=== PATIENT | female | born 1980 | race Caucasian/White ===

== ENCOUNTER 2017-10-26 22:32 | Emergency (ER) | payer MEDICAID ==
--- NOTE | 2017-10-26 23:00 | Emergency Department Record ---
History of Present Illness - General Chief complaint: Dental Stated complaint: DENTAL PAIN Time Seen by Provider: 10/26/17 22:51 Mode of Arrival: Ambulatory - History of Present Illness Initial comments: The patient states that she is having continued left lower molar tooth pain for which she has an extraction appointment with the oral surgeon on . She is on her second course of clindamycin antibiotics. She wishes something more for the pain which seems to bother her more at night. Onset/Timin -: Days(s) Location: L ear, Tooth # Severity scale (1-10): 10 Quality: Aching Consistency: Constant Improves with: Other Worsens with: Eating, Position, Other Context- Dental: History of dental caries - Related Data Allergies Allergy/AdvReac Type Severity Reaction Status Date / Time Egg Derived Allergy Intermediate FATIGUE Verified 10/26/17 22:42 influenza virus vaccine, Allergy Intermediate FATIGUE Verified 10/26/17 22:42 specific sertraline HCl [From Zoloft] AdvReac Severe suicidal Verified 10/26/17 22:42 tendencies Travel Screening - Travel/Exposure Within Last 30 Days Have you traveled within the last 30 days?: No - Travel/Exposure Within Last Year Have you traveled outside the [place] in the last year?: No - Additonal Travel Details Have you been exposed to anyone with a communicable illness?: No - Travel Symptoms Symptom Screening: None Review of Systems Reviewed: No additional complaints except as noted below Constitutional: Reports: As per HPI. Denies: Chills, Fever, Malaise, Night sweats, Weakness, Weight change Eyes: Reports: As per HPI. Denies: Eye discharge, Eye pain, Photophobia, Vision change ENT: Reports: As per HPI. Denies: Congestion, Dental pain, Ear pain, Epistaxis , Hearing loss, Throat pain Respiratory: Reports: As per HPI. Denies: Cough, Dyspnea, Hemoptysis, Stridor, Wheezes Cardiovascular: Reports: As per HPI. Denies: Arrhythmia, Chest pain, Dyspnea on exertion, Edema, Murmurs, Orthopnea, Palpitations, Paroxysmal nocturnal dyspnea, Rheumatic Fever, Syncope Endocrine: Reports: As per HPI. Denies: Fatigue, Heat or cold intolerance, Polydipsia, Polyuria Gastrointestinal: Reports: As per HPI. Denies: Abdominal pain, Constipation, Diarrhea, Hematemesis, Hematochezia, Melena, Nausea, Vomiting Genitourinary: Reports: As per HPI. Denies: Abnormal menses, Discharge, Dyspareunia, Dysuria, Frequency, Hematuria, Incontinence, Retention, Urgency Musculoskeletal: Reports: As per HPI. Denies: Arthralgia, Back pain, Gout, Joint swelling, Myalgia, Neck pain Skin: Reports: As per HPI. Denies: Bruising, Change in color, Change in hair/ nails, Lesions, Pruritus, Rash Neurological: Reports: As per HPI. Denies: Abnormal gait, Confusion, Headache, Numbness, Paresthesias, Seizure, Tingling, Tremors, Vertigo, Weakness Psychiatric: Reports: As per HPI. Denies: Anxiety, Auditory hallucinations, Depression, Homicidal thoughts, Suicidal thoughts, Visual hallucinations Hematological/Lymphatic: Reports: As per HPI. Denies: Anemia, Blood Clots, Easy bleeding, Easy bruising, Swollen glands Past Medical History - SOCIAL HISTORY Smoking Status: Never smoker Alcohol Use: None Drug Use: None - RESPIRATORY Hx Respiratory Disorders: Yes Hx Asthma: Yes - CARDIOVASCULAR Hx Cardio Disorders: Yes Hx Hypertension: Yes Hx Irregular Heartbeat: Yes Hx Palpitations: Yes (comes & goes) Comment:: fast HR, stress test & holter monitor neg 2015 - NEURO Hx Neuro Disorders: Yes Hx Dizziness: Yes - GI Hx GI Disorders: Yes Hx Abdominal Pain: Yes (upper, mid line) Hx Reflux: Yes Hx Rectal Bleeding: Yes (had for years) Hx of Polyps: Yes - Hx Genitourinary Disorders: No - ENDOCRINE Hx Endocrine Disorders: No - MUSCULOSKELETAL Hx Musculoskeletal Disorders: Yes Hx Arthritis: Yes (bilateral knees) - PSYCH Hx Psych Problems: Yes Hx Anxiety: Yes Hx Depression: Yes - HEMATOLOGY/ONCOLOGY Hx Hematology/Oncology Disorders: No Family Medical History Any Significant Family History?: No Hx Cancer: Grandparents *Cancer Comment: colon ca in both fraternal grandparents Hx Resp Disorders: Children, Grandparents Physical Exam - General General Appearance: Alert, Oriented x3, Cooperative, Mild distress - Head Head exam: Normal inspection - Eye Eye exam: Normal appearance, PERRL Pupils: Normal accommodation - ENT ENT exam: Normal exam, Mucous membranes moist, Normal external ear exam, Normal orophraynx, TM's normal bilaterally Ear exam: Normal external inspection. negative: External canal tenderness Nasal Exam: Normal inspection. negative: Discharge, Sinus tenderness Mouth exam: Normal external inspection, Tongue normal Teeth exam: Normal inspection, Fractured tooth # (#19), Other (no facial swelling, no lymphadenopathy beneath jaw). negative: Dental caries Throat exam: Normal inspection. negative: Tonsillar erythema, Tonsillar exudate - Neck Neck exam: Normal inspection, Full ROM. negative: Tenderness - Respiratory Respiratory exam: Normal lung sounds bilaterally. negative: Respiratory distress - Cardiovascular Cardiovascular Exam: Regular rate, Normal rhythm, Normal heart sounds - GI/Abdominal GI/Abdominal exam: Soft, Normal bowel sounds. negative: Tenderness - Rectal Rectal exam: Deferred - exam: Deferred - Extremities Extremities exam: Normal inspection, Full ROM, Normal capillary refill. negative: Tenderness - Back Back exam: Reports: Normal inspection, Full ROM. Denies: Muscle spasm, Rash noted, Tenderness - Neurological Neurological exam: Alert, CN II-XII intact, Normal gait, Oriented X3, Reflexes normal - Psychiatric Psychiatric exam: Normal affect, Normal mood - Skin Skin exam: Dry, Intact, Normal color, Warm Course Vital Signs 10/26/17 22:43 Temperature 97.7 F Pulse Rate 72 Respiratory 20 Rate Blood Pressure 140/96 Pulse Ox 99 Medical Decision Making - Management Options MDM Management: No Additional Work-up Planned Disposition Disposition: Discharge Clinical Impression: Pain, dental Disposition: Home, Self-Care Condition: (1) Good Additional Instructions: "Temporary Filling" at [facility] apply as instructed. Benadryl liquid--set it in the tooth for numbing locally. Take benadryl 50 mg at night to help with sleep as it causes drowsiness. Continue present medications of clindamycin as instructed. Alternate tylenol with ibuprofen as directed as needed for pain. Keep oral surgeon appointment as previouslyl arranged. Quality - Quality Measures Quality Measures: N/A - Blood Pressure Screening Does Patient Have Any of the Following: No Blood Pressure Classification: Hypertensive Reading Systolic Measurement: 140 Diastolic Measurement: 96 Screening for High Blood Pressure: Patient Exclusion, Hx of HTN [G9744]
[2017-10-26] MEDS ORDERED: DIPHENHYDRAMINE HCL 50 MG/ML VIAL IM ONE (23:02)
== END 2017-10-26 23:19 | disposition home or self-care (01) ==
LOC: ER 22:32
DX: S02.5XXA Fracture of tooth (traumatic), initial encounter for closed fracture (principal); X58.XXXA Exposure to other specified factors, initial encounter
CPT/HCPCS: 96372; 99282; 99283; J1200

== ENCOUNTER 2018-04-18 00:02 | Emergency (ER) | payer MEDICAID ==
--- NOTE | 2018-04-18 00:25 | Emergency Department Record ---
History of Present Illness - General Chief Complaint: Syncope Stated Complaint: SYNCOPAL Time Seen by Provider: 04/18/18 00:11 Source: Patient Mode of Arrival: EMS Limitations: No limitations Travel/Exposure to [facility] Within 21 Days of Symptoms: No - History of Present Illness Initial Comments: The patient is here due to almost passing out on the toilet a half hour ago. She has recently been constipated and was bearing down to have a BM and did have a small BM. She then soon felt weak and lightheaded and almost passed out. The patient denied any Cp or SOB during the episode but did have some sweating. She has had a hx of palpitations and did have a neg EST in 2014. She denies any recent illnesses or injuries and has had no CP with exertion, OROPEZA or lightheadedness prior to this event. MD Complaint: Glidden faint Onset/Timin -: Minutes(s) Prodromal Symptoms: Diaphoresis Injuries Sustained Associated with Event: None Current Symptoms: Abdominal pain Treatments Prior to Arrival: None Treatment Prior to Arrival Comment:: Blood sugar 122 - Cass Coma Scale Eye Response: (4) Open spontaneously Motor Response: (6) Obeys commands Verbal Response: (5) Oriented Bennett Total: 15 - Related Data Allergies Allergy/AdvReac Type Severity Reaction Status Date / Time Egg Derived Allergy Intermediate FATIGUE Verified 04/18/18 00:06 influenza virus vaccine, Allergy Intermediate FATIGUE Verified 04/18/18 00:06 specific sertraline HCl [From Zoloft] AdvReac Severe suicidal Verified 04/18/18 00:06 tendencies Travel Screening - Travel/Exposure Within Last 30 Days Have you traveled within the last 30 days?: No - Travel Symptoms Symptom Screening: None Review of Systems Constitutional: Denies: Chills, Fever Eyes: Denies: Eye discharge ENT: Denies: Congestion Respiratory: Denies: Cough, Dyspnea Cardiovascular: Denies: Arrhythmia, Chest pain Endocrine: Denies: Fatigue Gastrointestinal: Reports: Constipation, Nausea Genitourinary: Denies: Dysuria Musculoskeletal: Denies: Arthralgia Skin: Denies: Bruising Past Medical History - SOCIAL HISTORY Smoking Status: Never smoker Alcohol Use: None - RESPIRATORY Hx Respiratory Disorders: Yes Hx Asthma: Yes Comment:: seasonal allergies - CARDIOVASCULAR Hx Cardio Disorders: Yes Hx Hypertension: Yes Hx Irregular Heartbeat: Yes Hx Palpitations: Yes (comes & goes) Comment:: fast HR, stress test & holter monitor neg 2015 - NEURO Hx Neuro Disorders: Yes Hx Dizziness: Yes - GI Hx GI Disorders: Yes Hx Abdominal Pain: Yes (upper, mid line) Hx Reflux: Yes Hx Rectal Bleeding: Yes (had for years) Hx of Polyps: Yes - Hx Genitourinary Disorders: No - ENDOCRINE Hx Endocrine Disorders: No - MUSCULOSKELETAL Hx Musculoskeletal Disorders: Yes Hx Arthritis: Yes (bilateral knees) - PSYCH Hx Psych Problems: Yes Hx Anxiety: Yes Hx Depression: Yes - HEMATOLOGY/ONCOLOGY Hx Hematology/Oncology Disorders: No Family Medical History Any Significant Family History?: Yes Hx Cancer: Grandparents *Cancer Comment: colon ca in both fraternal grandparents Hx Resp Disorders: Children, Grandparents Physical Exam - General General Appearance: Alert, Oriented x3, Cooperative, No acute distress - Head Head exam: Atraumatic, Normocephalic, Normal inspection - Eye Eye exam: Normal appearance, PERRL - ENT Throat exam: Normal inspection. negative: Tonsillar erythema, Tonsillar exudate - Neck Neck exam: Normal inspection, Full ROM. negative: Tenderness - Respiratory Respiratory exam: Normal lung sounds bilaterally. negative: Respiratory distress - Cardiovascular Cardiovascular Exam: Regular rate, Normal rhythm, Normal heart sounds. negative : Diastolic murmur, Systolic murmur - GI/Abdominal GI/Abdominal exam: Soft, Normal bowel sounds. negative: Distended, Rebound, Rigid, Tenderness - Extremities Extremities exam: Normal inspection, Full ROM, Normal capillary refill. negative: Tenderness - Neurological Neurological exam: Alert, Normal gait. negative: Abnormal gait, Motor sensory deficit - Psychiatric Psychiatric exam: negative: Anxious - Skin Skin exam: negative: Rash Course Vital Signs 04/18/18 00:05 Temperature 98.5 F Pulse Rate [ 74 Pulse Ox Probe] Respiratory 16 Rate Blood Pressure 126/90 [Left Arm] Pulse Ox 99 - Reevaluation(s) Reevaluation #1: The patient is doing very well at this time. She denies any pain or discomfort and is up walking with no dizziness or lightheadedness. I did discuss the normal EKG and lab work with the patient and the need for F/U with her PCP if not better. 04/18/18 00:55 Medical Decision Making - Data Complexity MDM Data: Labs Ordered and/or Reviewed, EKG Ordered and/or Reviewed - Lab Data Result diagrams: 04/18/18 00:23 04/18/18 00:23 - EKG Data -: EKG Interpreted by Me EKG: No Acute Changes, Normal EKG Disposition Disposition: Discharge Clinical Impression: Vasovagal near syncope Disposition: Home, Self-Care Condition: (2) Stable Instructions: Near Syncope (ED) Additional Instructions: Please drink plenty of fluids and be careful taking the Miralax. Please see your family doctor next week for any problems. Return to the ER for any return of the lightheadness, palpitations, weakness or sweating. Forms: Patient Portal Access Time of Disposition: 00:57 Quality - Quality Measures Quality Measures: N/A - Blood Pressure Screening View Details: Yes Does Patient Have Any of the Following: No Blood Pressure Classification: Hypertensive Reading Systolic Measurement: 126 Diastolic Measurement: 90 Screening for High Blood Pressure: < First Hypertensive BP, F/U Documented > [ G8950] First Hypertensive Follow-up Interventions: Referral to alternative/primary care provider.
[2018-04-18 00:30] LABS: BASO % 0.5 % (0-6); HEMATOCRIT 38.7 % (35.0-47.0); HEMOGLOBIN 12.9 gm/dl (11.6-16.0); MEAN CELL VOLUME 94.9 fl (81-97); MEAN CORPUSCULAR HEMOGLOBIN 31.6 pg (27-33); MEAN CORPUSCULAR HGB CONC 33.3 g/dl (32-36); MONO % 11.5 % (0-9); PLATELET COUNT 331 K/uL (130-400); RED BLOOD COUNT 4.08 M/uL (3.80-5.40); RED CELL DISTRIBUTION WIDTH 12.1 % (11.5-14.5); WHITE BLOOD COUNT W/O DIFF 8.7 K/uL (4.2-12.2)
[2018-04-18 00:42] LABS: BLOOD UREA NITROGEN 17 mg/dL (6-20); CREATININE 0.8 mg/dL (0.5-0.9); EST GLOMERULAR FILTRATION RATE > 60 mL/min
[2018-04-18 00:43] LABS: TOTAL PROTEIN 7.7 g/dL (6.6-8.7)
[2018-04-18 00:45] LABS: GLUCOSE,RANDOM 99 mg/dL (74-109)
[2018-04-18 00:48] LABS: ALB/GLOB RATIO 1.3 (1.1-1.8); ALBUMIN 4.4 g/dL (4.0-5.0); ALKALINE PHOSPHATASE 54 U/L (45-87); ALT/SGPT 10 U/L (<33); AST/SGOT 13 U/L (10.0-35.0)
== END 2018-04-18 01:07 | disposition home or self-care (01) ==
LOC: ER 00:02
DX: R55 Syncope and collapse (principal); R61 Generalized hyperhidrosis; R10.13 Epigastric pain; I10 Essential (primary) hypertension
CPT/HCPCS: 80053; 84703; 85025; 93005; 93010; 99284

== ENCOUNTER 2019-03-11 09:18 | Emergency (ER) | payer MEDICAID ==
--- NOTE | 2019-03-11 09:42 | Emergency Department Record ---
History of Present Illness - General Chief complaint: ENT Stated complaint: CONGESTION, RASH ON RT CHEEK Time Seen by Provider: 03/11/19 09:35 Source: Patient Mode of Arrival: Ambulatory - History of Present Illness Initial comments: The patient states that she has had two days of sneezing and congestion. Her nose area of her face and cheeks feels almost painful, but there is no rash or other problems there. Today she work up with a sore throat. She denies fevers, chills, rashes, vomiting, abdominal pain, or diarrhea. Onset/Timin -: Days(s) Location: Nose, Throat Associated Symptoms: Pain with swallowing, Sore throat - Related Data Allergies Allergy/AdvReac Type Severity Reaction Status Date / Time Egg Derived Allergy Intermediate FATIGUE Verified 03/11/19 09:29 influenza virus vaccine, Allergy Intermediate FATIGUE Verified 03/11/19 09:29 specific sertraline HCl [From Zoloft] AdvReac Severe suicidal Verified 03/11/19 09:29 tendencies gluten AdvReac HYPERSENSIT Verified 03/11/19 09:29 IVITY Travel Screening - Travel/Exposure Within Last 30 Days Have you traveled within the last 30 days?: No - Travel/Exposure Within Last Year Have you traveled outside the [place] in the last year?: No - Additonal Travel Details Have you been exposed to anyone with a communicable illness?: No Review of Systems Reviewed: No additional complaints except as noted below Constitutional: Reports: As per HPI. Denies: Chills, Fever, Malaise, Night sweats, Weakness, Weight change Eyes: Reports: As per HPI. Denies: Eye discharge, Eye pain, Photophobia, Vision change ENT: Reports: As per HPI. Denies: Congestion, Dental pain, Ear pain, Epistaxis, Hearing loss, Throat pain Respiratory: Reports: As per HPI. Denies: Cough, Dyspnea, Hemoptysis, Stridor, Wheezes Cardiovascular: Reports: As per HPI. Denies: Arrhythmia, Chest pain, Dyspnea on exertion, Edema, Murmurs, Orthopnea, Palpitations, Paroxysmal nocturnal dyspnea, Rheumatic Fever, Syncope Endocrine: Reports: As per HPI. Denies: Fatigue, Heat or cold intolerance, Polydipsia, Polyuria Gastrointestinal: Reports: As per HPI. Denies: Abdominal pain, Constipation, Diarrhea, Hematemesis, Hematochezia, Melena, Nausea, Vomiting Genitourinary: Reports: As per HPI. Denies: Abnormal menses, Discharge, Dyspareunia, Dysuria, Frequency, Hematuria, Incontinence, Retention, Urgency Musculoskeletal: Reports: As per HPI. Denies: Arthralgia, Back pain, Gout, Joint swelling, Myalgia, Neck pain Skin: Reports: As per HPI. Denies: Bruising, Change in color, Change in hair/nails, Lesions, Pruritus, Rash Neurological: Reports: As per HPI. Denies: Abnormal gait, Confusion, Headache, Numbness, Paresthesias, Seizure, Tingling, Tremors, Vertigo, Weakness Psychiatric: Reports: As per HPI. Denies: Anxiety, Auditory hallucinations, Depression, Homicidal thoughts, Suicidal thoughts, Visual hallucinations Hematological/Lymphatic: Reports: As per HPI. Denies: Anemia, Blood Clots, Easy bleeding, Easy bruising, Swollen glands Past Medical History - SOCIAL HISTORY Smoking Status: Never smoker Alcohol Use: None Drug Use: None - RESPIRATORY Hx Respiratory Disorders: Yes Hx Asthma: Yes Comment:: seasonal allergies - CARDIOVASCULAR Hx Cardio Disorders: Yes Hx Hypertension: Yes Hx Irregular Heartbeat: Yes Hx Palpitations: Yes (comes & goes) Comment:: fast HR, stress test & holter monitor neg 2015 - NEURO Hx Neuro Disorders: Yes Hx Dizziness: Yes - GI Hx GI Disorders: Yes Hx Abdominal Pain: Yes (upper, mid line) Hx Reflux: Yes Hx Rectal Bleeding: Yes (had for years) Hx of Polyps: Yes - Hx Genitourinary Disorders: No - ENDOCRINE Hx Endocrine Disorders: No - MUSCULOSKELETAL Hx Musculoskeletal Disorders: Yes Hx Arthritis: Yes (bilateral knees) - PSYCH Hx Psych Problems: Yes Hx Anxiety: Yes Hx Depression: Yes - HEMATOLOGY/ONCOLOGY Hx Hematology/Oncology Disorders: No Family Medical History Any Significant Family History?: No Hx Cancer: Grandparents *Cancer Comment: colon ca in both fraternal grandparents Hx Resp Disorders: Children, Grandparents Physical Exam - General General Appearance: Alert, Oriented x3, Cooperative, No acute distress (sniffling slightly) - Head Head exam: Normal inspection - Eye Eye exam: Normal appearance, PERRL, EOMI. negative: Conjunctival injection, Nystagmus, Scleral icterus Pupils: Normal accommodation - ENT ENT exam: Normal exam, Mucous membranes moist, Normal external ear exam, Normal orophraynx, TM's normal bilaterally Ear exam: Normal external inspection. negative: External canal tenderness Nasal Exam: Normal inspection. negative: Discharge, Sinus tenderness Mouth exam: Normal external inspection, Tongue normal Teeth exam: Normal inspection. negative: Dental caries Throat exam: Normal inspection, Tonsillar erythema. negative: Tonsillar exudate - Neck Neck exam: Normal inspection, Full ROM. negative: Lymphadenopathy, Meningismus, Tenderness - Respiratory Respiratory exam: Normal lung sounds bilaterally. negative: Accessory muscle use, Prolonged expiratory, Rales, Respiratory distress, Rhonchi, Stridor, Wheezes - Cardiovascular Cardiovascular Exam: Regular rate, Normal rhythm, Normal heart sounds - GI/Abdominal GI/Abdominal exam: Soft. negative: Tenderness - Rectal Rectal exam: Deferred - exam: Deferred - Extremities Extremities exam: Normal inspection, Full ROM, Normal capillary refill. negative: Pedal edema, Tenderness - Back Back exam: Reports: Normal inspection, Full ROM. Denies: Muscle spasm, Rash noted, Tenderness - Neurological Neurological exam: Alert, CN II-XII intact, Normal gait, Oriented X3, Reflexes normal. negative: Altered, Motor sensory deficit - Psychiatric Psychiatric exam: Normal affect, Normal mood - Skin Skin exam: Dry, Intact, Normal color, Warm Course Vital Signs 03/11/19 09:21 Temperature 97.8 F Pulse Rate 94 H Respiratory 16 Rate Blood Pressure 118/82 Pulse Ox 99 - Reevaluation(s) Reevaluation #1: Patient was offered tylenl or ibuprofen but declined. 03/11/19 10:00 Reevaluation #2: Rsults discussed, all questions answered., patient ready for discharge. 03/11/19 10:01 Medical Decision Making - Management Options MDM Management: No Additional Work-up Planned - Data Complexity MDM Data: Labs Ordered and/or Reviewed (Rapis strep negative.) Disposition Disposition: Discharge Clinical Impression: Viral syndrome Disposition: Home, Self-Care Condition: (1) Good Instructions: Cold Symptoms (ED) Additional Instructions: Tylenol alternated with ibuprofen as needed as directed for pain. May use benadryl liquid at night to calm throat and decrease cough if one develops. Push fluids. Rest. PCP follow up as needed. Quality - Quality Measures Quality Measures: N/A - Blood Pressure Screening Does Patient Have Any of the Following: No Blood Pressure Classification: Pre-Hypertensive BP Reading Systolic Measurement: 118 Diastolic Measurement: 82 Screening for High Blood Pressure: < Normal BP, F/U Not Required > [[id number]]
== END 2019-03-11 10:05 | disposition home or self-care (01) ==
LOC: ER 09:18
DX: B34.9 Viral infection, unspecified (principal); R21 Rash and other nonspecific skin eruption; I10 Essential (primary) hypertension
CPT/HCPCS: 87880; 99282

== ENCOUNTER 2019-04-29 19:37 | Emergency (ER) | payer MEDICAID ==
[2019-04-29] MEDS ORDERED: ALBUTEROL SULFATE (0.083%) 2.5 MG/3 ML NEB INH ONE (19:58)
--- NOTE | 2019-04-29 20:01 | Emergency Department Record ---
History of Present Illness - General Chief Complaint: Shortness of breath Stated Complaint: REGINO Time Seen by Provider: 04/29/19 19:52 Source: Patient Mode of Arrival: Ambulatory Limitations: Physical limitation - History of Present Illness Initial Comments: The patient is here due to not feeling well for the last 3-4 hours. She suddenly felt poorly with a cough, body aches, and mil SOB. She has also had a mild runny nose and does feel mildly congested. There has been no hx of fever, chills, vomiting, diarrhea, or BOWERS. The patient does have a hx of mild asthma and did not have a flu shot this year. The patient is also having some L upper back pain th at started after a hard coughing fit. It hurts with deep breaths, coughing and movement. MD Complaint: Cough, Shortness of breath Onset/Timin -: Hour(s) Radiation: Back Severity: Mild Severity scale (1-10): 3 Quality: Stabbing Consistency: Intermittent, Getting worse Improves With: Nothing Worsens With: Nothing Treatments Prior to Arrival: None - Related Data Home Oxygen Therapy: No Previous Rx's Medication Instructions Recorded Albuterol Sulfate [Proair Hfa] 2 puff IH QID PRN #1 inhaler 04/29/19 Naproxen [Naprosyn] 500 mg PO BID #14 tablet. 04/29/19 Allergies Allergy/AdvReac Type Severity Reaction Status Date / Time Egg Derived Allergy Intermediate FATIGUE Verified 04/29/19 19:54 influenza virus vaccine, Allergy Intermediate FATIGUE Verified 04/29/19 19:54 specific sertraline HCl [From Zoloft] AdvReac Severe suicidal Verified 04/29/19 19:54 tendencies gluten AdvReac HYPERSENSIT Verified 04/29/19 19:54 IVITY Travel/Exposure Screening - Travel/Exposure Within Last 30 Days Have you traveled within the last 30 days?: No - Travel/Exposure Within Last Year Have you traveled outside the [place] in the last year?: No - Additonal Travel/Exposure Details Have you been exposed to anyone with a communicable illness?: No - Travel Symptoms Symptom Screening: None Review of Systems Constitutional: Reports: Malaise. Denies: Chills, Fever Eyes: Denies: Eye discharge ENT: Denies: Congestion Respiratory: Reports: Cough Cardiovascular: Denies: Chest pain Past Medical History - SOCIAL HISTORY Smoking Status: Never smoker Alcohol Use: None Drug Use: None - RESPIRATORY Hx Respiratory Disorders: Yes Hx Asthma: Yes Comment:: seasonal allergies - CARDIOVASCULAR Hx Cardio Disorders: Yes Hx Hypertension: Yes (during ) Hx Irregular Heartbeat: Yes Hx Palpitations: Yes (comes & goes) Comment:: fast HR, stress test & holter monitor neg 2015 - NEURO Hx Neuro Disorders: Yes Hx Dizziness: Yes - GI Hx GI Disorders: Yes Hx Abdominal Pain: Yes (upper, mid line) Hx Reflux: Yes Hx Rectal Bleeding: Yes (had for years) Hx of Polyps: Yes - Hx Genitourinary Disorders: No - ENDOCRINE Hx Endocrine Disorders: No - MUSCULOSKELETAL Hx Musculoskeletal Disorders: Yes Hx Arthritis: Yes (bilateral knees) - PSYCH Hx Psych Problems: Yes Hx Anxiety: Yes Hx Depression: Yes - HEMATOLOGY/ONCOLOGY Hx Hematology/Oncology Disorders: No Family Medical History Any Significant Family History?: No Hx Cancer: Grandparents *Cancer Comment: colon ca in both fraternal grandparents Hx Resp Disorders: Children, Grandparents Physical Exam - General General Appearance: Alert, Oriented x3, Cooperative, No acute distress - Head Head exam: Atraumatic, Normocephalic, Normal inspection - Eye Eye exam: Normal appearance, PERRL, EOMI - ENT Throat exam: Normal inspection. negative: Tonsillar erythema, Tonsillar exudate - Neck Neck exam: Normal inspection, Full ROM. negative: Tenderness - Respiratory Respiratory exam: Normal lung sounds bilaterally (The patient appears very comfortable in no distress speaking in full sentences.). negative: Accessory muscle use, Decreased breath sounds, Rales, Respiratory distress, Rhonchi, Stridor, Wheezes - Cardiovascular Cardiovascular Exam: Regular rate, Normal rhythm, Normal heart sounds - GI/Abdominal GI/Abdominal exam: Soft, Normal bowel sounds. negative: Tenderness - Extremities Extremities exam: Normal inspection, Full ROM, Normal capillary refill. negative: Tenderness Image of Full Body: 1 - Area of pain that is 100% reproducible with palpation. - Back Back exam: Reports: Normal inspection, Paraspinal tenderness (The L upper back pain is 100% reproducible with palpation.). Denies: Vertebral tenderness - Neurological Neurological exam: Alert, Normal gait. negative: Abnormal gait, Motor sensory deficit - Psychiatric Psychiatric exam: negative: Anxious Course Vital Signs 04/29/19 19:42 Temperature 97.5 F L Pulse Rate [ 104 H Pulse Ox Probe] Respiratory 24 Rate Blood Pressure 125/92 [Left Arm] Pulse Ox 99 - Reevaluation(s) Reevaluation #1: The patient is doing a lot better at this time. She denies any SOB or REGINO and her L upper back pain is much better and now only present with coughing. I did discuss the neg xray and EKG and Flu test. The patient does feel better after the Neb Tx and is ready for home. 04/29/19 20:58 Medical Decision Making - Data Complexity MDM Data: Labs Ordered and/or Reviewed (Flu: Neg), X-Ray Ordered and/or Reviewed, EKG Ordered and/or Reviewed - EKG Data -: EKG Interpreted by Me EKG: No Acute Changes, Normal EKG - Radiology Data Radiology results: Report reviewed (CXR: Neg.) Disposition Disposition: Discharge Clinical Impression: URI, acute Disposition: Home, Self-Care Condition: (2) Stable Instructions: Upper Respiratory Infection (ED) Additional Instructions: Please use Naprosyn for pain along with Tylenol. Use the Albuterol MDI for the coughing and please see your family doctor if not better in 2 days. Return to the ER for any worsening issues, new pain, fever or vomiting. Prescriptions: Naproxen [Naprosyn] 500 mg PO BID #14 tablet. Albuterol Sulfate [Proair Hfa] 2 puff IH QID PRN #1 inhaler PRN Reason: Cough And Difficulty Breathing Forms: Patient Portal Access Time of Disposition: 21:01 Quality - Quality Measures Quality Measures: N/A - Blood Pressure Screening View Details: Yes Does Patient Have Any of the Following: No Blood Pressure Classification: Pre-Hypertensive BP Reading Systolic Measurement: 121 Diastolic Measurement: 86 Screening for High Blood Pressure: < Pre-Hypertensive BP, F/U Documented > [[id number]] Pre-Hypertensive Follow-up Interventions: Referral to alternative/primary care provider.
[2019-04-29] MEDS ORDERED: ACETAMINOPHEN 325 MG TAB PO ONE (20:04)
[2019-04-29 20:20] LABS: INFLUENZA A NEGATIVE (NEGATIVE); INFLUENZA B NEGATIVE (NEGATIVE)
--- NOTE | 2019-04-29 20:48 | RADIOLOGY REPORT ---
EXAMINATION: CHEST 2 VIEWS EXAM DATE: 04/29/2019 8:31 PM TECHNIQUE: Frontal and lateral views of the chest INDICATION: cough COMPARISON: None FINDINGS: The cardiomediastinal silhouette is normal. The lungs are clear. No evidence of pneumonia or pulmonary edema. No pneumothorax or pleural effusion. The bones are unremarkable. IMPRESSION: Unremarkable examination. Dictated by: Orlando Wilson MD on 04/29/2019 8:46 PM. .
== END 2019-04-29 21:05 | disposition home or self-care (01) ==
LOC: ER 19:37
DX: J06.9 Acute upper respiratory infection, unspecified (principal); R05 Cough; M54.6 Pain in thoracic spine; R06.02 Shortness of breath
CPT/HCPCS: 71046; 87400; 93005; 93010; 94640; 99284; J7613